=== PATIENT | female | born 1970 | race Asian ===

== ENCOUNTER → 2018-03-27 | Outpatient (CLI) | payer SELFPAY ==
[2018-03-27 14:06] LABS: % BASOPHILS 0.7 % (0.0-2.0); % EOSINOPHILS 1.3 % (0.0-5.0); % LYMPHOCYTES 29.8 % (20.0-50.0); % NEUTROPHILS 61.2 % (40.0-80.0); BASOPHILE ABSOLUTE 0.1 Th/cumm (0-0.2); EOSINOPHILE ABSOLUTE 0.1 Th/cmm (0.1-0.4); HEMOGLOBIN 13.2 gm/dL (12-16); LYMPHOCYTE ABSOLUTE 2.6 Th/cmm (1.5-3.0); MEAN CELL VOLUME 88.2 fl (81-100); MEAN CORPUSCULAR HEMOGLOBIN 29.1 pg (27.0-31.0); MEAN PLATELET VOLUME 6.9 fl; MONOCYTE ABSOLUTE 0.6 Th/cmm (0.3-1.0); NEUTROPHILE ABSOLUTE 5.3 Th/cmm (1.8-8.0); PLATELET COUNT 323 Th/cmm (150-400); RED BLOOD COUNT 4.54 Mil/cmm (3.80-5.10); RED CELL DISTRIBUTION WIDTH 13.4 % (11.5-20.0); WHITE BLOOD COUNT 8.7 Th/cmm (4.8-10.8)
[2018-03-27 14:24] LABS: ALB/GLOB RATIO 1.2 (1.0-1.8); ALBUMIN 4.2 gm/dL (3.7-5.3); ALKALINE PHOSPHATASE 62 U/L (34-104); ANION GAP 15.4 (7.0-16.0); BILIRUBIN,TOTAL 0.5 mg/dL (0.3-1.0); BUN - UREA NITROGEN 12 mg/dL (7-25); CALCIUM SERUM 9.8 mg/dL (8.6-10.3); CARBON DIOXIDE 26.8 mEq/L (21.0-31.0); CHLORIDE 101 mEq/L (98-107); CHOLESTEROL 179 mg/dL (<200); CREATININE - SERUM 0.9 mg/dL (0.6-1.2); GFR AFRICAN-AMERICAN > 60.0 ml/min (>90); GFR NON AFRICAN-AMERICAN > 60.0 ml/min; GLUCOSE 101 mg/dL (70-105); HDL -HIGH DENSITY LIPOPROTEIN 53 mg/dL (23-92); POTASSIUM SERUM 4.2 mEq/L (3.5-5.1); SGOT 22 U/L (13-39); SGPT/ALT 16 U/L (7-52); SODIUM SERUM 139 mEq/L (136-145); TOTAL PROTEIN,SERUM 7.7 gm/dL (6.0-8.3); TRIGLYCERIDES 85 mg/dL (<150)
== END ==
LOC: LAB 03:36
DX: Z00.00 Encounter for general adult medical examination without abnormal findings (principal)
CPT/HCPCS: 36415-UA; 80053-TC; 80061-TC; 84436-TC; 84443-TC; 84480-90; 85025-TC